=== PATIENT | male | born 1990 | race Hispanic/Latino ===

== ENCOUNTER 2016-12-04 02:49 | Emergency (ER) | payer SELFPAY ==
[2016-12-04 03:07] VITALS: O2SAT 99
--- NOTE | 2016-12-04 03:50 | C.PDOC ---
History Of Present Illness 26 y/o male w/PMHx of schizophrenia, presents to the ER c/o not being able to sleep for the past few days. Patient sts, " I need Klonopin, a shower, and place to sleep for tonight". Patient reports being admitted at a [facility] 2 weeks ago where was tx for schizophrenia. He states, "medications still works , but I cannot sleep". Otherwise, denies fever, chills, suicidal ideation, homicidal ideation, hallucination, chest pain, SOB, dyspnea, diaphoresis, palpitation, N/V/D, abd. pain, denies any other complaints. Ambulatory n ED, appropriate, not in nay apparent distress. Time Seen by Provider: 12/04/16 03:16 Chief Complaint (Nursing): Anxiety History Per: Patient History/Exam Limitations: no limitations Onset/Duration Of Symptoms: Days Current Symptoms Are (Timing): Still Present Suicide/Self Injury Attempted (Context): None Modifying Factor(s): None Severity: Mild Associated Symptoms: denies: Suicidal Thoughts, Suicidal Plan Recent travel outside of the [place]: No Additional History Per: Patient Past Medical History Reviewed: Historical Data, Nursing Documentation, Vital Signs Vital Signs: Last Vital Signs Temp 98 F 12/04/16 06:00 Pulse 78 12/04/16 06:00 Resp 20 12/04/16 06:00 BP 144/78 12/04/16 06:00 Pulse Ox 99 12/04/16 06:03 - Medical History PMH: Anxiety, Depression, Schizophrenia, Sleep Apnea Other PMH: morbid obesity Surgical History: No Surg Hx Family History: States: Unknown Family Hx - Social History Hx Alcohol Use: Yes Hx Substance Use: No - Immunization History Hx Tetanus Toxoid Vaccination: No Hx Influenza Vaccination: No Hx Pneumococcal Vaccination: No Review Of Systems Except As Marked, All Systems Reviewed And Found Negative. Constitutional: Negative for: Fever, Chills, Other (Pain) Cardiovascular: Negative for: Chest Pain, Palpitations, Edema, Light Headedness Respiratory: Negative for: Cough, Shortness of Breath Gastrointestinal: Negative for: Nausea, Vomiting, Abdominal Pain Genitourinary: Negative for: Dysuria, Frequency, Incontinence Psych: Positive for: Other (Not being able to sleep). Negative for: Depression , Psychosis, Suicidal ideation (Homicidal ideation) Physical Exam - Physical Exam Appears: Well, Non-toxic, No Acute Distress, Unkempt Skin: Warm, Dry Head: Atraumatic, Normacephalic Eye(s): bilateral: PERRL Nose: No Flaring Oral Mucosa: Moist, No Drooling Throat: No Erythema, No Drooling Neck: Supple Cardiovascular: Rhythm Regular Respiratory: No Rales, No Rhonchi, No Wheezing Gastrointestinal/Abdominal: Soft, No Tenderness Back: No CVA Tenderness Extremity: Normal ROM, No Pedal Edema, No Deformity Neurological/Psych: Oriented x3, Normal Speech, Normal Cognition, Other (No focal deficit) ED Course And Treatment ECG: Interpreted By Me, Viewed By Me ECG Rhythm: Sinus Rhythm ECG Interpretation: Normal Interpretation Of ECG: [id number]/min, NAD, T wave inversion in III, no acute ST-T changes. O2 Sat by Pulse Oximetry: 99 (RA) Pulse Ox Interpretation: Normal Progress Note: On re-evaluation, pt sleeping comfortable, not in any apparent distress. Crisis consult offered, pt refused. Pt is afebrile, hemodynamicaly stable. Non-toxic. PulseOx 99% RA. Neck: Supple, (-) JVD, (-) meningeal sign. Lungs: CTA B/L, BS equal B/L. CVS: (+)S1S2, reg. Abd: benign. Neuorlogtical intact. EKG normal. Pt advised on course of ds and ref. to F/u with Psych in 1-2 days for re-evaluation. Return renu ED if any worsening or new changes. Disposition - Disposition Referrals: Non [facility] Provider, [Primary Care Provider] - Disposition: HOME/ ROUTINE Disposition Time: 05:39 Condition: STABLE Additional Instructions: Follow up with Psychiatrist in 1-2 days for re-evaluation. Return to ED if any new changes. Instructions: Insomnia (ED) Forms: [employer] (Montenegrin) - Clinical Impression Clinical Impression: Insomnia, Schizophrenia - Scribe Statement The provider has reviewed the documentation as recorded by the Scribe Mal payan All medical record entries made by the Scribe were at my direction and personally dictated by me. I have reviewed the chart and agree that the record accurately reflects my personal performance of the history, physical exam, medical decision making, and the department course for this patient. I have also personally directed, reviewed, and agree with the discharge instructions and disposition.
[2016-12-04 06:03] VITALS: BP 144/78; PULSE 78; RESP 20; TEMP 98
--- NOTE | 2016-12-05 12:53 | CARD ---
APPROVED REPORT EKG Measurement Heart [id number] <Conclusion> Sinus tachycardia Moderate voltage criteria for LVH, may be normal variant T wave abnormality, consider inferior ischemia Abnormal ECG
== END 2016-12-04 06:03 | disposition home or self-care (01) ==
LOC: C.ER 02:49 → SUPCPDRO 02:49 → C.ER 06:03
DX: F51.05 Insomnia due to other mental disorder (principal); F20.9 Schizophrenia, unspecified